=== PATIENT | female | born 1955 | race African-American/Black ===

== ENCOUNTER 2017-12-24 19:35 | Emergency (ER) | payer MEDICAID ==
[~2017-12-24] VITALS: Ht 170.2 cm; Wt 81.2 kg
[~2017-12-24 19:35] MED LIST: FLEXERIL PO; HUMALOG100 UNIT/2 SQ; IBUPROFEN 800800 M1 PO; LANTUS100 UNIT/M SUBQ; TRAMADOL 50 MG50 MG PO
[2017-12-24] MEDS ORDERED: METFORMIN HCL500 MG (20:05)
[2017-12-24] MEDS ORDERED: PRINIVIL20 MG (20:06)
[2017-12-24] MEDS ORDERED: NORCO 10-325 T1 EACH (20:07)
[2017-12-24] MEDS ORDERED: PROCTOCORT30 MG RECTAL (21:08)
[2017-12-24 21:23] VITALS: BP 146/80
== END 2017-12-24 21:24 | disposition home or self-care (01) ==
LOC: M.ERS 19:35
DX: K64.4 Residual hemorrhoidal skin tags (principal); L02.31 Cutaneous abscess of buttock

== ENCOUNTER 2021-02-18 14:01 | Emergency (ER) | payer OTHER, MEDICAID ==
[~2021-02-18] VITALS: Ht 170.2 cm; Wt 74.4 kg
[~2021-02-18 14:01] MED LIST changes: +METFORMIN HCL500 MG; +NORCO 10-325 T1 EACH; +PRINIVIL20 MG; +PROCTOCORT30 MG RECTAL
[2021-02-18] MEDS ORDERED: ASA81BEC PO (14:11)
[2021-02-18] MEDS ORDERED: [UNRECOGNIZED DRUG - OTHER] (14:12)
[2021-02-18] MEDS ORDERED: FLEXERIL PO (14:27)
[2021-02-18] MEDS ORDERED: NAPROSYN500 MG PO (14:27)
[2021-02-18 14:41] VITALS: BP 125/83
== END 2021-02-18 14:42 | disposition home or self-care (01) ==
LOC: M.ERS 14:01
DX: S90.02XA Contusion of left ankle, initial encounter (principal); Z79.4 Long term (current) use of insulin; Z79.82 Long term (current) use of aspirin; Z79.899 Other long term (current) drug therapy; V49.49XA Driver injured in collision with other motor vehicles in traffic accident, initial encounter; Y93.89 Activity, other specified; Y92.89 Other specified places as the place of occurrence of the external cause; Y99.8 Other external cause status